=== PATIENT | female | born 1970 | race African-American/Black ===

== ENCOUNTER 2022-12-15 05:38 | Day surgery (SDC) | payer BC ==
[2022-12-10 08:12] VITALS: BMI 27.4
[2022-12-15] MEDS ORDERED: Bupivacaine PF 0.5% 30 ML VIAL ONE (06:41)
[2022-12-15] MEDS ORDERED: Lidocaine 2% PF 5 ML VIAL ONE ×2 (06:41→06:42)
[2022-12-15] MEDS ORDERED: PROPOFOL 20 ML ONE (06:42)
[2022-12-15] MEDS ORDERED: CEFAZOLIN 2 GM VIAL ONE (06:46)
[2022-12-15] MEDS ORDERED: Sodium Chloride 0.9% 100 ML ONE (06:46)
[2022-12-15] MEDS ORDERED: fentaNYL PF 100 MCG/2 ML SYRINGE ONE ×2 (06:59→08:53)
[2022-12-15] MEDS ORDERED: PROPOFOL 200 MG/20 ML VIAL ONE (07:10)
[2022-12-15] MEDS ORDERED: Ketorolac Tromethamine 30 MG/ML VIAL ONE (07:10)
[2022-12-15] MEDS ORDERED: Ondansetron PF 4 MG/2 ML Vial ONE (07:10)
[2022-12-15] MEDS ORDERED: Lidocaine 1% PF 5 ML VIAL ONE (07:10)
[2022-12-15] MEDS ORDERED: Glycopyrrolate 0.2 MG/ML 5 ML SYRINGE ONE (07:10)
[2022-12-15] MEDS ORDERED: Dexamethasone 20 MG/5 ML VIAL ONE (07:10)
[2022-12-15] MEDS ORDERED: EPINEPHrine 1 MG/ML AMP ONE (08:01)
[2022-12-15] MEDS ORDERED: Lidocaine 1% (PF) 30 ML VIAL ONE (08:01)
[2022-12-15] MEDS ORDERED: HYDROcodone/Acetaminophen 5/325 mg Tablet ONE (11:43)
== END 2022-12-15 11:55 | disposition home or self-care (01) ==
LOC: SDC 05:38
PROVIDERS: ATTEND Orthopaedic Surgery
PROC: 0SBD4ZZ Excision of Left Knee Joint, Percutaneous Endoscopic Approach (ICD-10-PCS; principal; 2022-12-15)
DX: S83.272A Complex tear of lateral meniscus, current injury, left knee, initial encounter (principal); M94.262 Chondromalacia, left knee; X58.XXXA Exposure to other specified factors, initial encounter
CPT/HCPCS: J0171; J1100; J1885; J2001; J2405; J2704; J3490; S0020